=== PATIENT | female | born 1950 | race Caucasian/White ===

== ENCOUNTER → 2018-02-11 08:19 | Day surgery (SDC) | payer OTHER ==
[~2018-02-11 08:19] MED LIST: ALPRAZolam TAB* 0.25 MG PO PRN; Aspirin 81 mg CHEW TAB* 81 MG TAB.CHEW ONE; Aspirin EC TAB* 81 MG TAB.EC PO SCH; Diazepam TAB(*) 5 MG ONE; Diltiazem CD CAP* 180 MG PO SCH; HYDROcodone/ACETAMIN 5-325 MG* 1 TAB PO PRN; Heparin 2 UNITS/ML IVPREMIX* 2,000 ML IV ONE; Heparin(*) 1000 UNIT/ML 10 ML VIAL CATH LAB IV ONE; Iohexol 350 (CONTRAST) 200 ML MDV IV ONE; Levothyroxine TAB* 125 MCG TAB PO SCH; Lidocaine 1% INJ* 10 MG/ML 30 ML SDV ONE; Metoprolol Succinate XL TAB* 25 MG PO SCH; Midazolam* 1 MG/ML 10 ML VIAL (10 MG) ONE; NS 0.9% 1000 ML* 1,000 ML IV SCH; Omeprazole CAP* 20 MG PO SCH; ROSUVASTATIN CALCIUM 5 MG PO SCH; VERAPAMIL 2.5 MG/ML 2 ML VIAL ** 5 mg/2 ml ONE; diPHENhydraMINE PO* 25 MG ONE; fentaNYL* 50 MCG/ML 2 ML VIAL (100 MCG VIAL) ONE; nitroGLYCERIN DRIP* 25,000 MCG/250 ML BTL ONE
[2018-02-11 12:11] VITALS: BP 166/95
--- NOTE | 2018-02-12 00:04 | CATH ---
CC: Dr. Kiel Gordon; Estrella Petit NP * CARDIAC CATHETERIZATION REPORT: DATE OF PROCEDURE: 02/11/18 - [facility] CATH INDICATION FOR PROCEDURE: The patient with progressive weakness and shortness of breath with exertion, with an abnormal exercise stress echo, question decreasing LV function with exercise with aortic stenosis recently assessed by JORDAN and found to be no worse than moderate in nature, now rule out the presence of significant coronary artery disease. PROCEDURE: Coronary arteriography, left heart catheterization, left ventriculography. CONSENT: The patient was interviewed and examined in the holding area of the [facility]. The risks and benefits were explained and she understood them and wished to proceed. APPROACH: Right radial artery - assessed under ultrasound in the holding area and found to be acceptable for an approach. PRE-CARDIAC CATHETERIZATION LABORATORY RESULTS: Hemoglobin and hematocrit of 13.5 and 40 with a platelet count of 294,000. BUN and creatinine of 10 and 0.9 , sodium 139, potassium 4.1, chloride 106, bicarb 27. MEDICATIONS GIVEN DURING THE CARDIAC CATHETERIZATION: Versed 1 mg in the catheterization laboratory. The patient had received Benadryl 25 mg and Valium 5 mg in the holding area. EQUIPMENT UTILIZED: 1. Right radial artery sheath - 6-[place] Glidesheath. 2. Diagnostic guidewire - a 260 length Hansen curved guidewire. 3. Diagnostic coronary catheters - a 5-[place] 4 curved TIG catheter for the left coronary artery and a 5-[place] FR4 curved Colt catheter for the right coronary artery. 4. Left heart catheterization catheter, a 5-[place] PIG Performa radial artery catheter. 5. Closure device utilized - a radial band. DESCRIPTION OF PROCEDURE: The patient was brought to the cardiovascular laboratory where a formal time-out was performed. She was prepped and draped in sterile fashion and the right radial artery area was anesthetized with 1% lidocaine. Under ultrasound guidance, the right radial artery was cannulated and the sheath was placed. Coronary arteriography was performed utilizing the TIG catheter for the left coronary artery and the Colt catheter for the right coronary artery, which appeared to have an anterior takeoff. Central aortic pressure was recorded using the PIG Performa radial artery catheter advanced to the ascending aorta. The pigtail catheter was able to cross the aortic valve without any usage of a wire. Left ventricular pressure was recorded. Left ventriculography was performed utilizing a total of 20 cc of Omnipaque dye at a rate of 10 cc/sec. The catheter was then pulled back across the aortic valve to recheck gradient. At the end of the case, the catheter was removed and the sheath was removed and hemostasis was obtained with a Vasc Band. The reverse Barbeau was found to be a B. The total contrast used was 85 cc of Omnipaque dye. The radiation exposure included 8.3 minutes of fluoro time. The air kerma radiation was 1595 milligray. The DAP radiation was 9402 microgray per sq. m. RESULTS: HEMODYNAMIC DATA: Central aortic pressure 170/75 with a mean of 111. Left ventricular pressure 183 over left ventricular end-diastolic pressure of 26 to 30 mmHg. LEFT VENTRICULOGRAPHY: Performed in the GUY projection revealed symmetrical contracture of the left ventricle with the overall ejection fraction of 55% to 60%. CORONARY ARTERIOGRAPHY: A. Left coronary artery: 1. Left main - widely patent. 2. Left anterior descending artery - there was no significant disease seen throughout the course of the left anterior descending artery as it traverse to the apical region and on to the distal inferior wall. It supplied several diagonal branches, all of which distal vessels appeared to have corkscrew appearance suggesting the presence of left ventricular hypertrophy. No significant obstructions were seen. Of note, there appeared to be minimal plaquing in the proximal LAD of 10% to 15%. 3. Circumflex artery - a nondominant vessel supplying a thin first and second obtuse marginal branch with a slightly larger third and a moderate size fourth which extended into the inferior posterior apical region. No significant disease was seen throughout the course of the vessel. The circumflex artery after the low- lying obtuse marginal branch then proceeded to supply a left-sided posterior descending artery. No significant obstruction was seen throughout the course of the vessel. B. Right coronary artery - a probable nondominant, although there did seem to be some supply to the most proximal portion of the inferior wall. The artery tapered into small caliber in its distal vessels, but no focal obstruction was noted. Of note, the vessel was noted to have an anterior takeoff. OVERALL ASSESSMENT: Normal left ventricular systolic contractility with evidence of decreased left ventricular diastolic compliance evidenced by increased left ventricular end-diastolic pressure. No significant stenotic coronary artery disease was noted. This information will be shared with Dr. Kiel Gordon, the patient's primary social work program coordinator. Perhaps, consideration for the addition of diuretic therapy to beta-william therapy to help with relaxation would be most appropriate at this point. Of note, the degree of gradient across the aortic valve did not appear to be significant suggesting that the aortic valve at most would be mild to moderately obstructed. The ability of a pigtail catheter to pass across the aortic valve suggested that the valve was not severely obstructed. On examination, there was paradoxical splitting of S2 given her left bundle branch block, but I can distinctly hear a splitting with expiration. The patient has a scheduled followup wound check appointment with my partner, Dr. Oliveros, next week. She will follow up with Dr. Gordon after that. [id number]/CPS #: [id number] KARY
== END | disposition home or self-care (01) ==
LOC: CHICATH 08:19
PROVIDERS: ATTEND Internal Medicine Cardiovascular Disease
DX: I35.0 Nonrheumatic aortic (valve) stenosis (principal); I44.7 Left bundle-branch block, unspecified; I42.9 Cardiomyopathy, unspecified; E78.5 Hyperlipidemia, unspecified; E03.9 Hypothyroidism, unspecified; R94.39 Abnormal result of other cardiovascular function study; I11.9 Hypertensive heart disease without heart failure
CPT/HCPCS: 93458; A9270-GY; J1644; J2250; J3010

== ENCOUNTER 2018-07-02 13:37 | Emergency (ER) | payer MEDICARE, OTHER ==
[2018-07-02 13:50] VITALS: BP 158/78
--- NOTE | 2018-07-02 14:04 | UC ---
Abdominal Pain Female HPI - HPI Summary HPI Summary: 67 y/o female presents to the urgent care c/o upper abdominal pain since Saturday. Pt reports Hx of ventral Abdominal hernia and she feels when she press on it, pain is triggered. She states this morning she felt nausea and had a watery BM. Pain aching, 4/10 when she pushes on her ventral hernia, other than that she doesn't fell any pain. Nausea is gone, she now feels hungry. She ate a chicken noodle soup and a yogurt this morning. Pt is concerned the hernia is not strangulating. She also has Hx of GERD and take Omeprazole PO daily. Pt has not taken anything for pain and declines medications. Pt states Hx pf LBBB and aortic stenosis and denies chest pain or SOB. She states she has a full cardiology work up in 02/2018. Pt denies fever, dizziness, LUZ, N/V blood in the stool. She denies eating anything different or outside, recent travel. - History of Current Complaint Chief Complaint: UCAbdominalPain Stated Complaint: ABD PAIN Time Seen by Provider: 07/02/18 14:01 Hx Obtained From: Patient ?: No Onset/Duration: Gradual Onset, Lasting Days - 4 days, Still Present Timing: Constant Severity Initially: Mild Severity Currently: Moderate Pain Intensity: 5 - when she pushes on her abdominal hernia Pain Scale Used: 0-10 Numeric Location: Other - mid upper abdominal pain Radiates: No Character: Aching Aggravating Factor(s): Other: - push on abdominal hernia Alleviating Factor(s): Nothing Associated Signs and Symptoms: Positive: Nausea, Diarrhea - watery BM this morning - Risk Factors Ectopic Risk Factor: Negative Ovarian Torsion Risk Factor: Negative Allergies/Adverse Reactions: Allergies Allergy/AdvReac Type Severity Reaction Status Date / Time No Known Allergies Allergy Verified 07/02/18 13:50 PMH/Surg Hx/FS Hx/Imm Hx Previously Healthy: Yes Endocrine History: Hypothyroidism, Dyslipidemia Cardiovascular History: Hypertension, Other - LBBB, aortic stenosis GI/ History: Gastroesophageal Reflux Psychological History: Anxiety, Depression - Surgical History Surgical History: None - Family History Known Family History: Positive: Hypertension - Social History Occupation: Employed Full-time Lives: With Family Alcohol Use: Daily Substance Use Type: None Smoking Status (MU): Never Smoked Tobacco - Immunization History Most Recent Influenza Vaccination: fall 2013 Review of Systems All Other Systems Reviewed And Are Negative: Yes Constitutional: Positive: Negative Skin: Positive: Negative Eyes: Positive: Negative ENT: Positive: Negative Respiratory: Positive: Negative Cardiovascular: Positive: Negative Gastrointestinal: Positive: Abdominal Pain, Diarrhea - 1 watery BM this morning , Nausea Genitourinary: Positive: Negative Motor: Positive: Negative Neurovascular: Positive: Negative Musculoskeletal: Positive: Negative Neurological: Positive: Negative Psychological: Positive: Negative Is Patient Immunocompromised?: No Physical Exam - Summary Physical Exam Summary: Vital Signs Reviewed: Yes General:Patient is a well developed and nourished obese female who is sitting comfortable in the examining table. Patient is not in any acute respiratory distress. Eyes: Positive: Conjunctiva Clear - PERRLA, EOMI, fundi grossly normal ENT: Positive: Normal ENT inspection, Hearing grossly normal, Pharynx normal, TMs normal Neck: Positive: Supple, Nontender, No Lymphadenopathy Respiratory: Positive: Chest non-tender, Lungs clear, Normal breath sounds, No respiratory distress Cardiovascular: Positive: RRR,S1 and S2 present, No Murmur, Pulses Normal, Brisk Capillary Refill Abdomen Description: Positive: Nontender, Other: - Abd: obese with no distention. No surface trauma, no scars, incisions. hyperactive bowel sounds present in all four quadrants. Positive a ventral upper abdominal hernia, tender on deep palpation and when patient coughs, no guarding, or rigidity to palpation. No masses palpated, no pulsation in epigastric area. No organomegaly. Negative [place] signs. No periumbilical tenderness. No rebound in the lower quadrants. NT over McBurneys point. Good femoral pulses bilaterally. No hernia noted. No CVAT bilaterally Musculoskeletal: Positive: Strength Intact, ROM Intact, No Edema,FROM in all major joints, no edema, no cyanosis or clubbing. Neuro: Alert and oriented x 3. No acute neurological deficits. Speech is normal. Psychological: WNL Skin: Dry and warm Triage Information Reviewed: Yes Vital Signs: Initial Vital Signs Temp 98 F 07/02/18 13:47 Pulse 67 07/02/18 13:47 Resp 16 07/02/18 13:47 BP 158/78 07/02/18 13:47 Pulse Ox 100 07/02/18 13:47 Abd Pain Female Course/Dx - Course Course Of Treatment: 67 y/o female presents to the urgent care c/o upper abdominal pain since Saturday. Pt reports Hx of ventral Abdominal hernia and she feels when she press on it, pain is triggered. She states this morning she felt nausea and had a watery BM. Pain aching, 4/10 when she pushes on her ventral hernia, other than that she doesn't fell any pain. Nausea is gone, she now feels hungry. She ate a chicken noodle soup and a yogurt this morning. Pt is concerned the hernia is not strangulating. She also has Hx of GERD and take Omeprazole PO daily. Pt has not taken anything for pain and declines medications. Pt states Hx pf LBBB and aortic stenosis and denies chest pain or SOB. She states she has a full cardiology work up in 02/2018. Pt denies fever, dizziness, LUZ, N/V blood in the stool. She denies eating anything different or outside, recent travel. Hx obtained. Pt hyperactive bowel sounds present in all four quadrants. Positive a ventral upper abdominal hernia, tender on deep palpation and when patient coughs, no guarding, or rigidity to palpation on examination. Pt declined Zofran or tyleno PO for pain. UA ordered: negative. Abdominal/pelvic CT w/o ordered: Impression: No acute noncontrast pathology of visualized abdominal or pelvic pathology and no evidence of abdominal wall hernia observed as per radiologist. Pt advised to continue taking Omeprazole PO, increase hydration and eat small portion of soft food and rest. Pt also given a referral w/ General surgeon Dr Jordan for a consultation on her ventral hernia if pain continues. Strongly advised if abdominal pain increases and she develops fever and severe diarrhea or vomiting to go immediately to the ER for further management. Pt's BP is elevated today advised to decrease salt in diet , monitor BP and f/u with PCP for further management. D/C instruction explained. Pt left the clinic Hemodynamically stable, A&OX3. - Differential Dx/Diagnosis Differential Diagnosis: Appendicitis, Bowel Obstruction, Constipation, Gall Bladder Disease, Peptic Ulcer Disease, Renal Colic, Urinary Tract Infection, Other - gastroenteritis, abdominal hernia Provider Diagnosis: Upper abdominal pain, Ventral hernia, Uncontrolled hypertension Discharge - Sign-Out/Discharge Documenting (check all that apply): Patient Departure - D/c home All imaging exams completed and their final reports reviewed: Yes - Discharge Plan Condition: Stable Disposition: HOME Patient Education Materials: Acute Abdominal Pain (ED), Ventral Hernia (ED) Referrals: Estrella Petit NP [Primary Care Provider] - 2 Days Jacobo Jordan MD [Medical Doctor] - 1 Week Additional Instructions: 1- Please increase fluid intake w/ Gatorade or Pedialyte OTC. Eat small portion of soft food. 2- Take Tylenol PO q6hrs to alleviate symptoms. Continue taking Omeprazole PO and avoid spicy food, alcohol, chocolates or stayiong w/o eating for mansoor periods of time 3- CT was negative. However if your develop fever or abdominal pain w/ recurrent episodes of diarrhea please go to the ER, otherwise f/u with your PCP if diarrhea not resolving in 2-3 days 4- Please f/u w/ General surgeon Dr Jordan if ventral hernia continues w/ pain for further evaluation and treatment. 5-Your BP is elevated today. Please take your BP medications and decrease salt in your diet, monitor BP and if it continues to be elevated please f/u with your PCP for further management. If you develop chest pain, dizziness, visual disturbances, SOB, or severe LUZ please go immediately to the ER for further management - Billing Disposition and Condition Condition: STABLE Disposition: Home
--- NOTE | 2018-07-03 10:23 | UC ---
- Progress Note Progress Note: Patient Name: VIJAY KANG Medical Record#: [id number] Ordering Physician: Cristal DEL RIO Acct.#: [id number] : 1950 Age: 67 Sex: F Location: [facility] Exam Date: 07/02/18 1416 ADM Status: [facility] ER Order Information: CT ABD/PEL W/O Accession Number: [id number] CPT: 27512 CLINICAL HISTORY: upper abdominal pain, COMPARISON: None relevant available at the time of dictation. TECHNIQUE: Multiple contiguous axial CT scans were obtained of the abdomen and pelvis, without intravenous contrast enhancement. Coronal and sagittal multiplanar reformations are submitted for review. Oral contrast was not administered. FINDINGS: Evaluation is limited due to the lack of intravenous contrast. This limits evaluation of the solid organs and vasculature. LUNG BASES: The lung bases are clear. LIVER: The liver is normal in shape, size, contour, and attenuation. BILE DUCTS: There is no intrahepatic or extrahepatic biliary dilatation. GALLBLADDER: The gallbladder is normal, without pericholecystic inflammatory change. PANCREAS: The pancreas is normal, without mass or ductal dilatation. SPLEEN: Normal in size and appearance. UPPER GI TRACT: Evaluation of the gastrointestinal tract is limited by incomplete gastric distention. The upper GI tract is unremarkable. SMALL BOWEL AND MESENTERY: The small bowel is normal in contour, course, and caliber. There is no obstruction or dilatation. COLON: The colon is normal in contour, course, caliber. There is no pericolonic inflammatory change. ADRENALS: Normal bilaterally. KIDNEYS: The kidneys are normal in shape, size, contour, and axis. There is no hydronephrosis or nephrolithiasis. BLADDER: The bladder is smooth in contour. PELVIC ORGANS: The uterus and adnexa are grossly normal for technique. AORTA: The aorta is normal. IVC: Unremarkable LYMPH NODES: There is no lymphadenopathy by size criteria. ABDOMINAL WALL: There is no evidence for abdominal wall hernia. BONES AND SOFT TISSUES: Degenerative changes are noted of the spine. OTHER: None IMPRESSION: NO ACUTE NONCONTRAST CT PATHOLOGY OF THE VISUALIZED ABDOMEN AND PELVIS. This report is only to be considered final once signed by the Provider(s) as displayed in the "<Electronically Signed by >" field (s). Absence of a signature indicates the report is in a draft status and still needs to be finalized. In the event this document was created by someone other than the signing Provider, the individual initiating the document will be listed in the "Entered by:" or "Dictated by:" [email or web address]. 1 of 2 Course/Dx - Diagnoses Provider Diagnoses: Upper abdominal pain, Ventral hernia, Uncontrolled hypertension Discharge - Sign-Out/Discharge Documenting (check all that apply): Post-Discharge Follow Up All imaging exams completed and their final reports reviewed: Yes - Discharge Plan Condition: Stable Disposition: HOME Patient Education Materials: Acute Abdominal Pain (ED), Ventral Hernia (ED) Referrals: Jacobo Jordan MD [Medical Doctor] - 1 Week Estrella Petit NP [Primary Care Provider] - 2 Days Additional Instructions: 1- Please increase fluid intake w/ Gatorade or Pedialyte OTC. Eat small portion of soft food. 2- Take Tylenol PO q6hrs to alleviate symptoms. Continue taking Omeprazole PO and avoid spicy food, alcohol, chocolates or stayiong w/o eating for mansoor periods of time 3- CT was negative. However if your develop fever or abdominal pain w/ recurrent episodes of diarrhea please go to the ER, otherwise f/u with your PCP if diarrhea not resolving in 2-3 days 4- Please f/u w/ General surgeon Dr Jordan if ventral hernia continues w/ pain for further evaluation and treatment. 5-Your BP is elevated today. Please take your BP medications and decrease salt in your diet, monitor BP and if it continues to be elevated please f/u with your PCP for further management. If you develop chest pain, dizziness, visual disturbances, SOB, or severe LUZ please go immediately to the ER for further management - Billing Disposition and Condition Condition: STABLE Disposition: Home
== END 2018-07-02 15:30 | disposition home or self-care (01) ==
LOC: UCEAST 13:37
DX: R10.10 Upper abdominal pain, unspecified (principal); K43.9 Ventral hernia without obstruction or gangrene; R03.0 Elevated blood-pressure reading, without diagnosis of hypertension; K21.9 Gastro-esophageal reflux disease without esophagitis; I44.7 Left bundle-branch block, unspecified; I35.0 Nonrheumatic aortic (valve) stenosis; E03.9 Hypothyroidism, unspecified; E78.5 Hyperlipidemia, unspecified; I10 Essential (primary) hypertension; F41.9 Anxiety disorder, unspecified; F32.9 Major depressive disorder, single episode, unspecified
CPT/HCPCS: 74176; 81003; 99211; G0463

== ENCOUNTER 2018-09-26 18:31 | Emergency (ER) | payer OTHER ==
--- OUTSIDE RECORDS SUMMARY | 2018-09-26 18:35 | XMS REPORT | Continuity of Care Document ---
:1950 External Reference #:[id number] Author Name Boyd Trinh Care Team Providers Name Role Phone Estrella Petit NP Primary Care Physician Unavailable Payers Date Identification Numbers Payment Provider Subscriber Policy Number: [id number] [employer] Juliana Kang Group Number: [id number] [address] PayID: [id number] [place] [address] Problems Active Problems Provider Date Hypothyroidism Estrella Petit, N.P. Onset: 04/15/2012 Degenerative joint disease involving Estrella Petit, N.P. Onset: 04/15/2012 multiple joints Aortic valve disorder David Mahajan M.D., [facility], [facility] Onset: 03/06/2013 Left bundle branch block David Mahajan M.D., [facility] Onset: 03/06/2013 Benign essential hypertension David Mahajan M.D., [facility] Onset: 2013 Hyperlipidemia David Mahajan M.D., [facility] Onset: 09/11/2013 Family History Date Family Member(s) Observation Comments : (age Father due to Lung COPD 81 Years) Cancer Onset: (age 79 Father Coronary Artery Disease COPD, Lung Cancer Years) (CAD) Mother Hypertension Hyperlipidemia, and Thyroid Disease Children 2 1 Daughter - Thyroid Disease, Congenital Valve Disease age 46 1 Son - Smoker age 44 Siblings 4 1 Brother - Cardiac arrhythmia - Has a defibrillator age 46 1 Sister - Breast Cancer (30's), OA, GERD, Atrial Fibrillation, age 61 1 Sister - Thyroid Disease, Anxiety age 68 1 Sister - OA, Thyroid Disease, Atrial Fibrillation age 70 Social History Type Date Description Comments Sex Unknown Marital Status Lives With Family Occupation [employer] at [employer] retired Cu ETOH Use consumes 3-4 glasses of wine per day Tobacco Use Start: Unknown Patient has never smoked Recreational Drug Use Denies Drug Use Smoking Status Reviewed: 09/16/18 Patient has never smoked Exercise Type/Frequency Exercises regularly Allergies, Adverse Reactions, Alerts Description No Known Drug Allergies Medications Active Medications SIG Qnty Indications Ordering Provider Date Aldactone 1 by mouth every 90tabs Kiel Bajwa 08/19/2018 25mg Tablets day Anup Gordon Crestor 1 by mouth every 90tabs Estrella Petit, 04/07/2018 10mg Tablets day N.P. Alprazolam Take 1 Tablet By 15tabs Estrella Petit, 01/27/2018 0.25mg Tablets Mouth Up To N.P. Three Times A Day as Needed For Anxiety (Max Of 3 Per Day ) Cartia XT 1 tablet by 90caps Kiel Bajwa 01/22/2018 180mg Caps ER mouth once a day Anup Gordon 24HR Hydrocodone-Acetaminop one tablet by 30tabs Oleg Cruz NP 05/03/2017 hen mouth every 12 5-325mg Tablets hours as needed for pain Levothyroxine Sodium Take One Tablet 30tabs Estrella Petit, 04/01/2017 By Mouth Once N.P. 125mcg Tablets Daily Metoprolol Succinate 1 by mouth every 90tabs Leny Oliveros, 05/22/2012 ER day , GILLIAN, [facility] 25mg Tablets ER 24HR Omeprazole Take One Capsule 30caps Oleg Cruz NP 20mg Capsules By Mouth Once DR Daily History Medications Triamcinolone apply twice a day 30gm Estrella Petit, 05/26/2018 - Acetonide until clear N.P. 05/27/2018 0.1% Cream Proair HFA 2 puffs by mouth 8.5units Estrella Petit, 04/07/2018 - every 4 hours as N.P. 05/07/2018 108(90Base) mcg/Act needed Aerosol Amoxicillin/Clavulan one tablet by 20tabs J20.9 Estrella Petit, 04/07/2018 - ate Potassium mouth twice daily N.P. 04/17/2018 for 10 days 875-125mg Tablets Ventolin HFA 1 to 2 inhalations 18units J20.9 Estrella Limanjula, 04/07/2018 - every 4 hours as N.P. 04/07/2018 108(90Base) mcg/Act needed Aerosol Prednisone 3 tabs daily for 5 18tabs J20.9 Estrella Damaso, 04/07/2018 - 20mg days, then 2 N.P. 04/14/2018 Tablets tablets for a day, then 1 tablet for a day, then stop Vitamin B12 TR 1/2 tab by mouth 30tabs Other Ordering 02/19/2018 - every day Provider 08/18/2018 1000mcg Tablets ER Furosemide 1a pill by mouth 30tabs David Mahajan, 02/11/2018 - 20mg every day as Anup [facility], 09/15/2018 Tablets needed [facility] Medrol 6 by mouth day 1, 21units M25.512 Estrella Petit, 08/21/2017 - 4mg TBPK 5 by mouth day 2, N.P. 08/27/2017 4 by mouth day 3, 3 by mouth day 4, 2 by mouth day 5, 1 by mouth day 6 Tramadol HCL 1-2 tablets every 30tabs M54.5 Oleg Cruz NP 04/04/2017 - 50mg 12 hours as needed 05/03/2017 Tablets for pain. Aspirin Take One Tablet By 30tabs I10 Estrella Petit, 10/01/2016 - 81mg Tablets Mouth Once Daily N.P. 03/02/2018 DR Blood 1 tab by mouth 60caps M71.22 Ant F 06/28/2016 - 100mg twice a day as MD Angie 10/01/2016 Capsules needed Azithromycin 2 tabs by mouth 6tabs J20.9 Oleg Cruz NP 04/13/2016 - 250mg every day x1 day, 04/18/2016 Tablets 1 tab by mouth every day x 4 days Guaifenesin-Codeine 1-2 teaspoon every 180ml J20.9 Oleg Cruz NP 2016 - 4-6 hours for 04/20/2016 100-10mg/5ML Syrup cough Symbicort 2 puffs twice 6.900gm J20.9 Oleg Cruz NP 04/13/2016 - daily 04/27/2016 80-4.5mcg/Act Aerosol Ventolin HFA 1 to 2 inhalations 1inhaler R06.2 Estrella Petit, 07/27/2015 - every 4 hours as N.P. 08/21/2017 108(90Base) mcg/Act needed Aerosol Guaifenesin-Codeine 1-2 teaspoon every 180ml J06.9 Oleg Cruz NP 2015 - 4-6 hours for 06/19/2015 100-10mg/5ML Syrup cough Fluticasone 2 sprays each 16gm J06.9 Oleg Cruz NP 06/09/2015 - Propionate nostril qd. 06/19/2015 50mcg/Act Suspension Lisinopril 1/2 by mouth 90tabs David Mahajan, 03/10/2014 - 20mg every day M.D., [facility], 01/22/2018 Tablets [facility] Levothyroxine Sodium Take One Tablet By 30tabs Estrella Petit, 04/28/2013 - Mouth Once Daily N.P. 04/01/2017 150mcg Tablets Azithromycin two tabs day one, 6tabs 466.0 Estrella Petit, 11/21/2012 - 250mg one daily till N.P. 12/01/2012 Tablets gone Xanax Take One Tablet By 15tabs Estrella Petit, 10/20/2012 - 0.25mg Tablets Mouth Up To Three N.P. 01/27/2018 Times A Day as Needed For Anxiety Max Of 3 Tablets Per Day Lisinopril 1 1/2 tabs by 135tabs David Mahajan, 05/22/2012 - 10mg mouth every day M.D., [facility], 03/10/2014 Tablets [facility] Lisinopril 1 po qd 90tabs David Mahajan, 05/15/2012 - 5mg M.D., [facility], 05/22/2012 Tablets [facility] Crestor 1 tab by mouth 90tabs Kiel Bajwa 05/15/2012 - 5mg Tablets every night Anup Gordon 04/07/2018 Levothroid 1 po qd Unknown - 125mcg 04/28/2013 Tablets Hydrocodone/Acetamin 1-2 po qid prn 40tabs Unknown - ophen 02/10/2013 5-325mg Tablets Nabumetone 1 po bid 60tabs Unknown - 500mg 02/10/2013 Tablets Aspir-81 1 by mouth every 120tabs Oleg Cruz NP - 81mg Tablets day 10/24/2016 Medications Administered in Office Medication SIG Qnty Indications Ordering Provider Date Depomedrol 40MG Ant Adams MD 06/28/2016 Injection Inj, Regadenoson, 0.1 MG David Mahajan M.D., [facility], 05/20/2012 Injection [facility] Aminophylline David Mahajan M.D., [facility], 05/20/2012 Injection [facility] Technetium TC 99M David Mahajan M.D., [facility], 05/20/2012 Tetrofosmin, Per Unit Dose Up [facility] To 40 Millicuries Injection Immunizations CPT Code Status Date Vaccine Reaction Lot # [id number] Given 12/15/2017 Influenza Virus Vaccine, Quadrivalent, Split, Preservative Free 36920 Given 04/04/2017 Pneumococcal Conjugate No immediate reaction [id number] Vaccine 13 Valent For noted. Intramuscular Use 13425 Given 03/19/2016 Tdap - no immediate reaction [id number] Tetanus/Diptheria/Acellular noted ... hh Pertussis 26042 Given 01/25/2015 Influenza Virus Vaccine, [id number] Quadrivalent, Split, Preservative Free Vital Signs Date Vital Result Comment 09/16/2018 3:15pm Height 61.5 inches 5'1.50" Weight 203.00 lb with sandals Heart Rate 60 /min BP Systolic 150 mmHg Rue lg cuf f BP Diastolic 90 mmHg Rue lg cuf f BP Systolic Sitting 130 mmHg Lue lg cuff BP Diastolic Sitting 90 mmHg Lue lg cuff BP Systolic Standing 152 mmHg Lue lg cuff BP Diastolic Standing 90 mmHg Lue lg cuff Respiratory Rate 14 /min BMI (Body Mass Index) 37.7 kg/m2 Ejection Fraction 45-50% date 01/15/18 ECHO 08/19/2018 2:35pm Height 61.5 inches 5'1.50" Weight 201.25 lb with shoes Heart Rate 64 /min BP Systolic Sitting 156 mmHg BP Diastolic Sitting 84 mmHg BP Systolic Standing 144 mmHg BP Diastolic Standing 80 mmHg BMI (Body Mass Index) 37.4 kg/m2 Ejection Fraction 45-50% 01/15/2018 Echocardiogram 05/28/2018 2:11pm Height 61.5 inches 5'1.50" Weight 205.25 lb Heart Rate 59 /min BP Systolic 142 mmHg BP Diastolic 73 mmHg Body Temperature 97.6 F O2 % BldC Oximetry 98 % BMI (Body Mass Index) 38.1 kg/m2 04/07/2018 12:50pm Height 61.5 inches 5'1.50" Weight 205.25 lb Heart Rate 67 /min BP Systolic 143 mmHg BP Diastolic 77 mmHg Body Temperature 98.8 F O2 % BldC Oximetry 95 % BMI (Body Mass Index) 38.1 kg/m2 03/18/2018 3:33pm Height 62 inches 5'2" Weight 207.75 lb Heart Rate 63 /min BP Systolic 153 mmHg BP Diastolic 78 mmHg Body Temperature 97.7 F O2 % BldC Oximetry 98 % BMI (Body Mass Index) 38.0 kg/m2 03/03/2018 3:07pm Height 62 inches 5'2" Weight 205.00 lb Heart Rate 58 /min BP Systolic 140 mmHg Lue lg cuff BP Diastolic 85 mmHg Lue lg cuff Respiratory Rate 18 /min BMI (Body Mass Index) 37.5 kg/m2 02/20/2018 2:47pm Height 62 inches 5'2" Weight 205.12 lb Heart Rate 76 /min BP Systolic Sitting 136 mmHg BP Diastolic Sitting 84 mmHg BMI (Body Mass Index) 37.5 kg/m2 01/09/2018 2:32pm Height 62 inches 5'2" Weight 200.00 lb with shoes Heart Rate 74 /min BP Systolic Sitting 130 mmHg lue reg cuff BP Diastolic Sitting 74 mmHg lue reg cuff BP Systolic Standing 128 mmHg lue reg cuff BP Diastolic Standing 70 mmHg lue reg cuff BMI (Body Mass Index) 36.6 kg/m2 Ejection Fraction 55-60% echo.08/26/2012 10/02/2017 3:32pm Height 62 inches 5'2" Weight 200.00 lb Heart Rate 60 /min BP Systolic 115 mmHg BP Diastolic 63 mmHg Body Temperature 98.5 F O2 % BldC Oximetry 98 % BMI (Body Mass Index) 36.6 kg/m2 08/21/2017 2:40pm Height 62 inches 5'2" Weight 203.00 lb Heart Rate 63 /min BP Systolic 109 mmHg BP Diastolic 59 mmHg Body Temperature 98.4 F O2 % BldC Oximetry 97 % BMI (Body Mass Index) 37.1 kg/m2 04/04/2017 1:00pm Height 62 inches 5'2" Weight 205.50 lb Heart Rate 64 /min BP Systolic 134 mmHg BP Diastolic 80 mmHg Body Temperature 97.6 F O2 % BldC Oximetry 97 % BMI (Body Mass Index) 37.6 kg/m2 Waist Circumference 43.5 10/25/2016 2:48pm Height 62 inches 5'2" Weight 204.00 lb w/shoes Heart Rate 84 /min 62 BP Systolic Sitting 142 mmHg LA lg cuff BP Diastolic Sitting 82 mmHg LA lg cuff BP Systolic Standing 122 mmHg LA lg cuff BP Diastolic Standing 60 mmHg LA lg cuff BMI (Body Mass Index) 37.3 kg/m2 Ejection Fraction 55-60% Echo 09/26/12 10/01/2016 3:48pm Weight 202.00 lb Heart Rate 71 /min BP Systolic 128 mmHg BP Diastolic 80 mmHg Body Temperature 98.3 F O2 % BldC Oximetry 98 % 06/28/2016 1:50pm Height 62 inches 5'2" Weight 200.00 lb Heart Rate 51 /min BP Systolic 155 mmHg BP Diastolic 72 mmHg Respiratory Rate 16 /min Body Temperature 98.2 F Pain Level 1 BMI (Body Mass Index) 36.6 kg/m2 06/25/2016 2:59pm Weight 203.00 lb Heart Rate 71 /min BP Systolic Sitting 132 mmHg BP Diastolic Sitting 72 mmHg Body Temperature 98.5 F O2 % BldC Oximetry 97 % 04/13/2016 2:51pm Weight 201.00 lb Heart Rate 81 /min BP Systolic Sitting 154 mmHg BP Diastolic Sitting 86 mmHg Respiratory Rate 20 /min Body Temperature 99.7 F O2 % BldC Oximetry 98 % 03/19/2016 1:35pm Height 61.25 inches 5'1.25" Weight 202.00 lb Heart Rate 64 /min BP Systolic 138 mmHg BP Diastolic 78 mmHg Body Temperature 98.8 F O2 % BldC Oximetry 98 % BMI (Body Mass Index) 37.9 kg/m2 10/10/2015 2:12pm Height 61.5 inches 5'1.50" Weight 195.00 lb Heart Rate 76 /min 80 BP Systolic Sitting 122 mmHg right arm, reg cuff BP Diastolic Sitting 74 mmHg right arm, reg cuff BP Systolic Standing 122 mmHg right arm, reg cuff BP Diastolic Standing 72 mmHg right arm, reg cuff Respiratory Rate 20 /min BMI (Body Mass Index) 36.2 kg/m2 Ejection Fraction 55-60% 08/26/12 07/27/2015 4:15pm Weight 199.50 lb Heart Rate 72 /min BP Systolic Sitting 117 mmHg BP Diastolic Sitting 59 mmHg O2 % BldC Oximetry 98 % 06/09/2015 1:35pm Height 61.5 inches 5'1.50" Weight 200.00 lb Heart Rate 76 /min BP Systolic Sitting 124 mmHg BP Diastolic Sitting 80 mmHg Respiratory Rate 15 /min Body Temperature 97.4 F O2 % BldC Oximetry 98 % BMI (Body Mass Index) 37.2 kg/m2 01/25/2015 1:38pm Height 61.5 inches 5'1.50" Weight 197.00 lb Heart Rate 69 /min BP Systolic Sitting 128 mmHg BP Diastolic Sitting 64 mmHg O2 % BldC Oximetry 96 % BMI (Body Mass Index) 36.6 kg/m2 11/16/2014 2:24pm Height 62 inches 5'2" Weight 196.00 lb without shoes Heart Rate 70 /min BP Systolic Sitting 120 mmHg LA LG Cuff BP Diastolic Sitting 80 mmHg LA LG Cuff BP Systolic Standing 120 mmHg LA LG Cuff BP Diastolic Standing 84 mmHg LA LG Cuff Respiratory Rate 17 /min BMI (Body Mass Index) 35.8 kg/m2 Ejection Fraction 55-60% date 08/26/12 ECHO 07/30/2014 9:57am Weight 198.00 lb Heart Rate 66 /min BP Systolic Sitting 118 mmHg BP Diastolic Sitting 70 mmHg O2 % BldC Oximetry 98 % 07/15/2014 1:34pm Weight 195.75 lb Heart Rate 68 /min BP Systolic Sitting 130 mmHg BP Diastolic Sitting 56 mmHg O2 % BldC Oximetry 98 % 04/27/2014 1:32pm Weight 203.00 lb Heart Rate 60 /min BP Systolic Sitting 138 mmHg BP Diastolic Sitting 66 mmHg Body Temperature 98.7 F 03/31/2014 3:18pm Height 61 inches 5'1" Heart Rate 64 /min regular BP Systolic 126 mmHg right arm reg cuff BP Diastolic 62 mmHg right arm reg cuff BP Systolic Sitting 122 mmHg right arm reg cuff BP Diastolic Sitting 70 mmHg right arm reg cuff Respiratory Rate 18 /min 03/10/2014 3:10pm Height 61 inches 5'1" Weight 200.00 lb Heart Rate 60 /min 62 BP Systolic Sitting 158 mmHg right arm, reg cuff BP Diastolic Sitting 76 mmHg right arm, reg cuff BP Systolic Standing 138 mmHg right arm, reg cuff BP Diastolic Standing 76 mmHg right arm, reg cuff Respiratory Rate 20 /min BMI (Body Mass Index) 37.8 kg/m2 01/15/2014 1:15pm Height 61 inches 5'1" Weight 199.00 lb Heart Rate 72 /min BP Systolic Sitting 132 mmHg BP Diastolic Sitting 90 mmHg BMI (Body Mass Index) 37.6 kg/m2 09/11/2013 3:32pm Height 61 inches 5'1" Weight 196.00 lb Heart Rate 64 /min 66 BP Systolic Sitting 124 mmHg right arm, large cuff BP Diastolic Sitting 76 mmHg right arm, large cuff BP Systolic Standing 116 mmHg right arm, large cuff BP Diastolic Standing 76 mmHg right arm, large cuff Respiratory Rate 16 /min BMI (Body Mass Index) 37.0 kg/m2 07/15/2013 1:32pm Height 62 inches 5'2" Weight 195.00 lb Heart Rate 72 /min BP Systolic Sitting 148 mmHg BP Diastolic Sitting 78 mmHg Body Temperature 97.9 F BMI (Body Mass Index) 35.7 kg/m2 06/18/2013 10:41am Weight 198.00 lb Heart Rate 68 /min BP Systolic Sitting 110 mmHg BP Diastolic Sitting 74 mmHg Body Temperature 98.0 F 04/23/2013 11:42am Weight 200.25 lb Heart Rate 60 /min BP Systolic 104 mmHg BP Diastolic 70 mmHg Respiratory Rate 16 /min Body Temperature 98.2 F 03/06/2013 3:55pm Height 61.75 inches 5'1.75" Weight 200.00 lb Heart Rate 6062 /min BP Systolic Sitting 126 mmHg left arm, large cuff BP Diastolic Sitting 86 mmHg left arm, large cuff BP Systolic Standing 114 mmHg left arm, large cuff BP Diastolic Standing 80 mmHg left arm, large cuff Respiratory Rate 20 /min BMI (Body Mass Index) 36.9 kg/m2 02/10/2013 2:10pm Weight 198.00 lb Heart Rate 60 /min BP Systolic 120 mmHg BP Diastolic 72 mmHg Body Temperature 97.3 F 11/21/2012 3:41pm Weight 196.00 lb Heart Rate 68 /min BP Systolic Sitting 126 mmHg BP Diastolic Sitting 78 mmHg 05/16/2012 1:37pm Height 61.75 inches 5'1.75" Weight 199.75 lb Heart Rate 72 /min BP Systolic Sitting 102 mmHg BP Diastolic Sitting 60 mmHg BMI (Body Mass Index) 36.8 kg/m2 04/15/2012 3:28pm Height 61.75 inches 5'1.75" Weight 199.00 lb Heart Rate 58 /min BP Systolic Sitting 148 mmHg 142/ 80 BP Diastolic Sitting 80 mmHg 142/ 80 BMI (Body Mass Index) 36.7 kg/m2 Results Test Date Facility Test Result H/L Range Note Liver Function 09/08/2018 [facility] Total Protein 7.1 g/dL N 6.4-8.[address] [place] [address] [phone] Albumin 4.3 g/dL N 3.2-5.2 Globulin 2.8 g/dL N 2-4 Albumin/Globulin Ratio 1.5 N 1-3 Total Bilirubin 0.90 mg/dL N 0.2-1.0 Direct Bilirubin 0.10 mg/dL N 0.03-0.18 Indirect Bilirubin 0.8 mg/dL N 0.3-1.0 Alkaline Phosphatase 93 U/L N 34-104 Alt 19 U/L N 7-52 Ast 18 U/L N 13-39 Lipid Profile 09/08/2018 [facility] Triglycerides 110 mg/dL 1 (Trig/Chol/HDL) [address] [place] [address] [phone] Cholesterol 187 mg/dL 2 HDL Cholesterol 81.0 mg/dL 3 LDL Cholesterol 84 mg/dL 4 Lipid Panel - 09/08/2018 [facility] Creatine 56 U/L N 10-[address] Kinase(CK) [place] [address] [phone] Comp Metabolic 09/08/2018 [facility] Sodium 140 N 135-[address] mmol/[place] [address] [phone] Potassium 4.4 mmol/L N 3.5-5.0 Chloride 107 mmol/L N 101-111 Co2 Carbon Dioxide 26 mmol/L N 22-32 Anion Gap 7 mmol/L N 2-11 Glucose 113 mg/dL High 70-100 Blood Urea Nitrogen 17 mg/dL N 6-24 Creatinine 0.99 mg/dL High 0.51-0.95 BUN/Creatinine Ratio 17.2 N 8-20 Calcium 9.4 mg/dL N 8.6-10.3 Total Protein 7.4 g/dL N 6.4-8.9 Albumin 4.4 g/dL N 3.2-5.2 Globulin 3.0 g/dL N 2-4 Albumin/Globulin Ratio 1.5 N 1-3 Total Bilirubin 1.00 mg/dL N 0.2-1.0 Alkaline Phosphatase 88 U/L N 34-104 Alt 19 U/L N 7-52 Ast 17 U/L N 13-39 Egfr Non- 55.9 >60 Egfr 67.7 >60 5 Laboratory test 09/08/2018 [facility] Magnesium 2.1 mg/dL N 1.9-2.[address] [place] [address] [phone] Poc Urinalysis 07/02/2018 [facility] Poc Glucose, Negative Negative [address] [place] [address] [phone] Poc Bilirubin, Urine Negative Negative Poc Ketone, Urine Negative Negative Poc Specific [place]auf[place], Urine 1.015 N 1.010-1.030 Poc Blood, Urine Negative Negative Poc pH, Urine 7.0 N 5-9 Poc Protein, Urine Negative Negative Poc Urobilinogen, Urine 0.2 Negative Poc Nitrite, Urine Negative Negative Poc Leukocytes, Urine Negative Negative Poc Color, Urine Yellow Poc Clarity, Urine Clear 6 Lipid Profile 04/03/2018 [facility] Triglycerides 106 mg/dL 7 (Trig/Chol/HDL) [address] [place] [address] [phone] Cholesterol 219 mg/dL 8 HDL Cholesterol 86.4 mg/dL 9 LDL Cholesterol 111 mg/dL 10 Comp Metabolic Panel 04/03/2018 [facility] Sodium 137 mmol/L N 135-[address] [place] [address] [phone] Potassium 4.2 mmol/L N 3.5-5.0 Chloride 105 mmol/L N 101-111 Co2 Carbon Dioxide 27 mmol/L N 22-32 Anion Gap 5 mmol/L N 2-11 Glucose 109 mg/dL High 70-100 Blood Urea Nitrogen 15 mg/dL N 6-24 Creatinine 0.90 mg/dL N 0.51-0.95 BUN/Creatinine Ratio 16.7 N 8-20 Calcium 9.1 mg/dL N 8.6-10.3 Total Protein 7.0 g/dL N 6.4-8.9 Albumin 4.4 g/dL N 3.2-5.2 Globulin 2.6 g/dL N 2-4 Albumin/Globulin Ratio 1.7 N 1-3 Total Bilirubin 0.90 mg/dL N 0.2-1.0 Alkaline Phosphatase 77 U/L N 34-104 Alt 15 U/L N 7-52 Ast 16 U/L N 13-39 Egfr Non- 62.6 >60 Egfr 75.8 >60 11 CBC Auto Diff 03/18/2018 [facility] White Blood 5.9 10^3/uL N 3.5-10.[address] [place] [address] [phone] Red Blood Count 4.38 10^6/uL N 4.00-5.40 Hemoglobin 13.7 g/dL N 12.0-16.0 Hematocrit 41 % N 35-47 Mean Corpuscular Volume 92 fL N 80-97 Mean Corpuscular Hemoglobin 31 pg N 27-31 Mean Corpuscular HGB Conc 34 g/dL N 31-36 Red Cell Distribution Width 13 % N 10.5-15 Platelet Count 317 10^3/uL N 150-450 Mean Platelet Volume 7.9 fL N 7.4-10.4 Abs Neutrophils 3.6 10^3/uL N 1.5-7.7 Abs Lymphocytes 1.6 10^3/uL N 1.0-4.8 Abs Monocytes 0.4 10^3/uL N 0-0.8 Abs Eosinophils 0.2 10^3/uL N 0-0.6 Abs Basophils 0.1 10^3/uL N 0-0.2 Abs Nucleated RBC 0 10^3/uL Granulocyte % 61.9 % Lymphocyte % 28.1 % Monocyte % 6.2 % Eosinophil % 2.8 % Basophil % 1.0 % Nucleated Red Blood Cells % 0.1 Comp Metabolic Panel 03/18/2018 [facility] Sodium 138 mmol/L N 135-[address] [place] [address] [phone] Potassium 4.1 mmol/L N 3.5-5.0 Chloride 102 mmol/L N 101-111 Co2 Carbon Dioxide 30 mmol/L N 22-32 Anion Gap 6 mmol/L N 2-11 Glucose 91 mg/dL N 70-100 Blood Urea Nitrogen 12 mg/dL N 6-24 Creatinine 0.89 mg/dL N 0.51-0.95 BUN/Creatinine Ratio 13.5 N 8-20 Calcium 9.3 mg/dL N 8.6-10.3 Total Protein 7.4 g/dL N 6.4-8.9 Albumin 4.5 g/dL N 3.2-5.2 Globulin 2.9 g/dL N 2-4 Albumin/Globulin Ratio 1.6 N 1-3 Total Bilirubin 0.60 mg/dL N 0.2-1.0 Alkaline Phosphatase 83 U/L N 34-104 Alt 17 U/L N 7-52 Ast 18 U/L N 13-39 Egfr Non- 63.5 >60 Egfr 76.8 >60 12 Laboratory test finding 03/18/2018 [facility] Lipase 24 U/L N 11.0-82.[address] [place] [address] [phone] Amylase 30 U/L N 29-103 Ua Routine 03/18/2018 [employer] House Ua Specific [place]aufman 1.025 Ua PH 6 Ua Color yellow Ua Appera clear Ua WBC trace Ua Protein negative Ua Glucose normal Ua Ketones negative Ua Bilirubin normal Ua Urobilinogen normal Ua Nitrite negative Ua Occult Blood 250 Cath Panel 02/07/2018 [facility] Partial 25.1 seconds Low 26.0 -36.[address] [place] [address] PTT [phone] CBC Auto 02/07/2018 [facility] White Blood 5.3 10^3/uL N 3.5- 10.[address] Count [place], [place] [id number] [phone] Red Blood Count 4.33 10^6/uL N 4.00-5.40 Hemoglobin 13.5 g/dL N 12.0-16.0 Hematocrit 40 % N 35-47 Mean Corpuscular Volume 92 fL N 80-97 Mean Corpuscular Hemoglobin 31 pg N 27-31 Mean Corpuscular HGB Conc 34 g/dL N 31-36 Red Cell Distribution Width 13 % N 10.5-15 Platelet Count 294 10^3/uL N 150-450 Mean Platelet Volume 7.7 fL N 7.4-10.4 Abs Neutrophils 3.1 10^3/uL N 1.5-7.7 Abs Lymphocytes 1.6 10^3/uL N 1.0-4.8 Abs Monocytes 0.5 10^3/uL N 0-0.8 Abs Eosinophils 0.1 10^3/uL N 0-0.6 Abs Basophils 0 10^3/uL N 0-0.2 Abs Nucleated RBC 0 10^3/uL Granulocyte % 57.5 % Lymphocyte % 30.1 % Monocyte % 9.3 % Eosinophil % 2.2 % Basophil % 0.9 % Nucleated Red Blood Cells % 0 Inr/Protime 02/07/2018 [facility] Inr 0.89 N 0.77-1.02 [address] [place] [address] [phone] Basic Metabolic 02/07/2018 [facility] Sodium 139 mmol/L N 135- 145 Panel [address] [place] [address] [phone] Potassium 4.1 mmol/L N 3.5-5.0 Chloride 106 mmol/L N 101-111 Co2 Carbon Dioxide 27 mmol/L N 22-32 Anion Gap 6 mmol/L N 2-11 Glucose 97 mg/dL N 70-100 Blood Urea Nitrogen 10 mg/dL N 6-24 Creatinine 0.90 mg/dL N 0.51-0.95 BUN/Creatinine Ratio 11.1 N 8-20 Calcium 9.2 mg/dL N 8.6-10.3 Egfr Non- 62.6 >60 Egfr 75.8 >60 13 Laboratory 09/16/2017 [facility] TSH (Thyroid Stim 0.69 N 0.34 -5.[address] Horm) mcIU/[place] [address] [phone] Lipid Profile 03/28/2017 [facility] Triglycerides 58 mg/dL 15 (Trig/Chol/HDL [address] ) [place] [address] [phone] Cholesterol 179 mg/dL 16 HDL Cholesterol 63.8 mg/dL 17 LDL Cholesterol 104 mg/dL 18 Comp Metabolic Panel 03/28/2017 [facility] Sodium 139 mmol/L N 133-145 [address] [place] [address] [phone] Potassium 4.3 mmol/L N 3.5-5.0 Chloride 106 mmol/L N 101-111 Co2 Carbon Dioxide 27 mmol/L N 22-32 Anion Gap 6 mmol/L N 2-11 Glucose 100 mg/dL N 70-100 Blood Urea Nitrogen 15 mg/dL N 6-24 Creatinine 0.79 mg/dL N 0.51-0.95 BUN/Creatinine Ratio 19.0 N 8-20 Calcium 9.0 mg/dL N 8.6-10.3 Total Protein 6.7 g/dL N 6.4-8.9 Albumin 3.9 g/dL N 3.2-5.2 Globulin 2.8 g/dL N 2-4 Albumin/Globulin Ratio 1.4 N 1-3 Total Bilirubin 0.80 mg/dL N 0.2-1.0 Alkaline Phosphatase 73 U/L N 34-104 Alt 16 U/L N 7-52 Ast 17 U/L N 13-39 Egfr Non- 73.0 >60 Egfr 93.9 >60 19 Laboratory test 03/28/2017 [facility] TSH (Thyroid 0.06 Low 0.34-5.60 20 finding [address] [facility] Stim Horm) mcIU/[place] [address] [phone] Hemoglobin A1c (Glyco HGB) 5.5 % N 4.0-5.6 21 Lipid Profile 03/14/2016 [facility] Triglycerides 86 mg/dL N 22 (Trig/Chol/HDL) [address] [place] [address] [phone] Cholesterol 200 mg/dL N 23 HDL Cholesterol 76.9 mg/dL N 24 LDL Cholesterol 106 mg/dL N 25 Comp Metabolic Panel 03/14/2016 [facility] Sodium 138 mmol/L N 133-145 [address] [place] [address] [phone] Potassium 4.5 mmol/L N 3.5-5.0 Chloride 106 mmol/L N 101-111 Co2 Carbon Dioxide 29 mmol/L N 22-32 Anion Gap 3 mmol/L N 2-11 Glucose 91 mg/dL N 70-100 Blood Urea Nitrogen 14 mg/dL N 6-24 Creatinine 0.88 mg/dL N 0.51-0.95 BUN/Creatinine Ratio 15.9 N 8-20 Calcium 9.1 mg/dL N 8.6-10.3 Total Protein 6.8 g/dL N 6.4-8.9 Albumin 4.0 g/dL N 3.2-5.2 Globulin 2.8 g/dL N 2-4 Albumin/Globulin Ratio 1.4 N 1-3 Total Bilirubin 0.90 mg/dL N 0.2-1.0 Alkaline Phosphatase 71 U/L N 34-104 Alt 15 U/L N 7-52 Ast 16 U/L N 13-39 Egfr Non- 64.7 N >60 Egfr 83.2 N >60 26 Laboratory test 03/14/2016 [facility] TSH (Thyroid 0.33 Low 0.34-5.60 [address] Stim Horm) mcIU/[place] [address] [phone] Hemoglobin A1c (Glyco HGB) 5.5 % N Less than 6.0 28 Comp Metabolic Panel 01/19/2015 [facility] Sodium 138 mmol/L N 133-[address] [place] [address] [phone] Potassium 4.7 mmol/L N 3.5-5.0 Chloride 104 mmol/L N 101-111 Co2 Carbon Dioxide 30 mmol/L N 22-32 Anion Gap 4 mmol/L N 2-11 Glucose 85 mg/dL N 70-100 Blood Urea Nitrogen 15 mg/dL N 6-24 Creatinine 0.80 mg/dL N 0.51-0.95 BUN/Creatinine Ratio 18.8 N 8-20 Calcium 9.3 mg/dL N 8.6-10.3 Total Protein 7.0 g/dL N 6.4-8.9 Albumin 4.2 g/dL N 3.2-5.2 Globulin 2.8 g/dL N 2-4 Albumin/Globulin Ratio 1.5 N 1-3 Total Bilirubin 0.80 mg/dL N 0.2-1.0 Alkaline Phosphatase 83 U/L N 34-104 Alt 21 U/L N 7-52 Ast 19 U/L N 13-39 Egfr Non- 72.4 N >60 Egfr 93.2 N >60 29 Lipid Profile 01/19/2015 [facility] Triglycerides 73 mg/dL N 30 (Trig/Chol/HDL) [address] [place] [address] [phone] Cholesterol 197 mg/dL N 31 HDL Cholesterol 74.1 mg/dL N 32 LDL Cholesterol 108 mg/dL N 33 Lyme Western 07/30/2014 [facility] Lyme Disease Negative N Negative Blot [address] [place] [address] [phone] Lyme Disease IgG Bands Present No bands detecte <SEE NOTE> kDa N 34 Lyme Disease IgM Ab WB Negative N Negative Lyme Disease IgM Bands Present No bands detecte <SEE NOTE> kDa N 35 Lyme Disease Interpretation See Comment N 36 Basic Metabolic Panel 03/31/2014 Sodium 137 mmol/L N 133-145 Potassium 4.4 mmol/L N 3.5-5.0 Chloride 106 mmol/L N 101-111 Co2 Carbon Dioxide 26 mmol/L N 22-32 Anion Gap 5 mmol/L N 2-11 Glucose 113 mg/dL High 70-100 Blood Urea Nitrogen 17 mg/dL N 6-24 Creatinine 0.84 mg/dL N 0.51-0.95 BUN/Creatinine Ratio 20.2 High 8-20 Calcium 8.9 mg/dL N 8.6-10.3 Egfr Non- 68.7 N >60 Egfr 88.4 N >60 37 Comp Metabolic Panel 01/11/2014 [facility] Sodium 138 mmol/L N 133-[address] [place] [address] [phone] Potassium 4.3 mmol/L N 3.5-5.0 39 Chloride 105 mmol/L N 101-111 Co2 Carbon Dioxide 28 mmol/L N 22-32 Anion Gap 5 mmol/L N 2-11 Glucose 85 mg/dL N 70-100 Blood Urea Nitrogen 18 mg/dL N 6-24 Creatinine 0.82 mg/dL N 0.51-0.95 BUN/Creatinine Ratio 22.0 High 8-20 Calcium 8.9 mg/dL N 8.6-10.3 Total Protein 6.9 g/dL N 6.4-8.9 Albumin 4.0 g/dL N 3.2-5.2 Globulin 2.9 g/dL N 2-4 Albumin/Globulin Ratio 1.4 N 1-3 Total Bilirubin 0.80 mg/dL N 0.2-1.0 Alkaline Phosphatase 71 U/L N 34-104 Alt 19 U/L N 7-52 Ast 17 U/L N 13-39 Egfr Non- 70.6 N >60 Egfr 90.8 N >60 40 Lipid Profile 01/11/2014 [facility] Triglycerides 85 mg/dL N 41 (Trig/Chol/HDL) [address] [place], [place] [id number] [phone] Cholesterol 193 mg/dL N 42 HDL Cholesterol 68.5 mg/dL N 43 LDL Cholesterol 108 mg/dL N 44 Laboratory 01/11/2014 [facility] TSH (Thyroid 0.41 N 0.34- 5.60 45 test finding [address] Stimulating Horm) IU/[place] [address] [phone] Lipid Profile 07/14/2013 [facility] Triglycerides 92 mg/dL N 46, (Trig/Chol/HDL [address] ) [place], [place] [id number] [phone] Cholesterol 164 mg/dL N 48 HDL Cholesterol 58.1 mg/dL N 49 LDL Cholesterol 88 mg/dL N 50 Comp Metabolic Panel 07/14/2013 [facility] Sodium 140 mmol/L N 133-[address] [place] [address] [phone] Potassium 4.5 mmol/L N 3.7-5.6 Chloride 107 mmol/L N 101-111 Co2 Carbon Dioxide 28 mmol/L N 22-32 Anion Gap 5 mmol/L N 2-11 Glucose 103 mg/dL High 70-100 Blood Urea Nitrogen 16 mg/dL N 6-24 Creatinine 0.90 mg/dL N 0.51-0.95 BUN/Creatinine Ratio 17.8 N 8-20 Calcium 9.1 mg/dL N 8.6-10.3 Total Protein 6.9 g/dL N 6.4-8.9 Albumin 4.2 g/dL N 3.2-5.2 Globulin 2.7 g/dL N 2-4 Albumin/Globulin Ratio 1.6 N 1-3 Total Bilirubin 0.80 mg/dL N 0.2-1.0 Alkaline Phosphatase 60 U/L N 34-104 Alt 13 U/L N 7-52 Ast 13 U/L N 13-39 Egfr Non- 63.7 N >60 Egfr 81.9 N >60 51 Laboratory test 07/14/2013 [facility] TSH (Thyroid 0.37 N 0.34 -5.60 [address] Stimulating IU/[place] [address] Horm) [phone] Free T4 1.43 ng/mL High 0.61-1.12 53 Laboratory test 04/23/2013 [facility] Ferritin 52.6 ng/mL 11- [address] [place] [address] [phone] TSH (Thyroid Stimulating Horm) 6.07 IU/mL High 0.34-5.60 CBC With 04/23/2013 [facility] White Blood 4.6 10^3/uL Low 4.8 -10.[address] [place] [address] [phone] Red Blood Count 4.26 10^6/uL 4.0-5.4 Hemoglobin 13.4 g/dL 12.0-16.0 Hematocrit 39 % 35-47 Mean Corpuscular Volume 90 fL 80-97 Mean Corpuscular Hemoglobin 31 pg 27-31 Mean Corpuscular HGB Conc 35 g/dL 31-36 Red Cell Distribution Width 14 % 10.5-15 Platelet Count 288 10^3/uL 150-450 Mean Platelet Volume 9 um3 7.4-10.4 Abs Neutrophils 2.2 10^3/uL 1.5-7.7 Abs Lymphocytes 1.8 10^3/uL 1.0-4.8 Abs Monocytes 0.3 10^3/uL 0-0.8 Abs Eosinophils 0.2 10^3/uL 0-0.6 Abs Basophils 0 10^3/uL 0-0.2 Abs Nucleated RBC 0 10^3/uL Neutrophil % 48 % 38-83 Lymphocytes % 37 % 25-47 Monocytes % 2 % 0-13 Eosinophils % 8 % High 0-6 Basophil % 1 % 0-2 Reactive Lymph % 4 % 0-6 RBC Morphology Normal Normal Lipid Profile 07/14/2012 [facility] Triglycerides 59 mg/dL 40 -200 (Trig/Chol/HDL) [address] [place] [address] [phone] Cholesterol 195 mg/dL Less than 200 HDL Cholesterol 68 mg/dL High 40-60 54 Cholesterol/HDL Ratio 2.9 Average 1-4.44 LDL Cholesterol 115.2 mg/dL High Less Than 100 55 Liver Function 07/14/2012 [facility] Total Protein 6.1 g/dL Low 6.2-8.1 Panel [address] [place] [address] [phone] Albumin 3.9 g/dL 3.2-5.2 Globulin 2.2 g/dL 2-4 Albumin/Globulin Ratio 1.8 1-3 Total Bilirubin 0.7 mg/dL 0.4-1.5 Direct Bilirubin 0.1 mg/dL 0.1-0.5 Indirect Bilirubin 0.6 mg/dL 0.3-1.0 Alkaline Phosphatase 71 U/L 30-110 Alt 22 U/L 14-54 Ast 21 U/L 12-42 Comp Metabolic Panel 04/18/2012 [facility] Sodium 141 mmol/L 133-145 [address] [place] [address] [phone] Potassium 4.3 mmol/L 3.5-5.0 Chloride 108 mmol/L 101-111 Co2 Carbon Dioxide 29.0 mmol/L 22-32 Anion Gap 4.0 mmol/L 2-11 Glucose 95 mg/dL 70-100 Blood Urea Nitrogen 13 mg/dL 6-24 Creatinine 0.90 mg/dL 0.50-1.40 BUN/Creatinine Ratio 14.4 8-20 Calcium 9.6 mg/dL 8.1-9.9 Total Protein 7.1 g/dL 6.2-8.1 Albumin 4.1 g/dL 3.2-5.2 Globulin 3.0 g/dL 2-4 Albumin/Globulin Ratio 1.4 1-3 Total Bilirubin 1.4 mg/dL 0.4-1.5 Alkaline Phosphatase 73 U/L 30-110 Alt 16 U/L 14-54 Ast 17 U/L 12-42 Egfr Non- 63.9 >60 Egfr 82.1 >60 56 Lipid Profile 04/18/2012 [facility] Triglycerides 66 mg/dL 40 -200 (Trig/Chol/HDL) [address] [place] [address] [phone] Cholesterol 253 mg/dL High Less than 200 HDL Cholesterol 68 mg/dL High 40-60 57 Cholesterol/HDL Ratio 3.7 Average 1-4.44 LDL Cholesterol 171.8 mg/dL High Less Than 100 58 Laboratory test 04/18/2012 [facility] TSH (Thyroid 3.35 0.34- 5.60 [address] Stimulating miu/[place] [address] Horm) [phone] Free T4 0.85 ng/mL 0.61-1.24 60 Laboratory test 04/15/2012 [facility] Cytology RUN DATE: finding [address] <SEE NOTE> [place] [address] [phone] 1 Desirable: <150 Borderline High: 150-199 High: 200-499 Very High: >500 2 Desirable: <200 Borderline High: 200-239 High: >239 3 Low: <40 Desirable: 40-60 High: >60 4 Desirable: <100 Near Optimal: 100-129 Borderline High: 130-159 High: 160-189 Very High: >189 5 Because ethnic data is not always readily available, this report includes an eGFR for both -Americans and non- Americans. The National Kidney Disease Education Program (NKDEP) does not endorse the use of the MDRD equation for patients that are not between the ages of 18 and 70, are , have extremes of body size, muscle mass, or nutritional status, or are non- or non-. According to the National Kidney Foundation, irrespective of diagnosis, the stage of the disease is based on the level of kidney function: Stage Description GFR(mL/min/1.73 m(2)) 1 Kidney damage with normal or decreased GFR 90 2 Kidney damage with mild decrease in GFR 60-89 3 Moderate decrease in GFR 30-59 4 Severe decrease in GFR 15-29 5 Kidney failure <15 (or dialysis) 6 Associate Professor Of Radiology: [id number] Desirable: <150 Borderline High: 150-199 High: 200-499 Very High: >500 8 Desirable: <200 Borderline High: 200-239 High: >239 9 Low: <40 Desirable: 40-60 High: >60 10 Desirable: <100 Near Optimal: 100-129 Borderline High: 130-159 High: 160-189 Very High: >189 11 Because ethnic data is not always readily available, this report includes an eGFR for both -Americans and non- Americans. The National Kidney Disease Education Program (NKDEP) does not endorse the use of the MDRD equation for patients that are not between the ages of 18 and 70, are , have extremes of body size, muscle mass, or nutritional status, or are non- or non-. According to the National Kidney Foundation, irrespective of diagnosis, the stage of the disease is based on the level of kidney function: Stage Description GFR(mL/min/1.73 m(2)) 1 Kidney damage with normal or decreased GFR 90 2 Kidney damage with mild decrease in GFR 60-89 3 Moderate decrease in GFR 30-59 4 Severe decrease in GFR 15-29 5 Kidney failure <15 (or dialysis) 12 Because ethnic data is not always readily available, this report includes an eGFR for both -Americans and non- Americans. The National Kidney Disease Education Program (NKDEP) does not endorse the use of the MDRD equation for patients that are not between the ages of 18 and 70, are , have extremes of body size, muscle mass, or nutritional status, or are non- or non-. According to the National Kidney Foundation, irrespective of diagnosis, the stage of the disease is based on the level of kidney function: Stage Description GFR(mL/min/1.73 m(2)) 1 Kidney damage with normal or decreased GFR 90 2 Kidney damage with mild decrease in GFR 60-89 3 Moderate decrease in GFR 30-59 4 Severe decrease in GFR 15-29 5 Kidney failure <15 (or dialysis) 13 Because ethnic data is not always readily available, this report includes an eGFR for both -Americans and non- Americans. The National Kidney Disease Education Program (NKDEP) does not endorse the use of the MDRD equation for patients that are not between the ages of 18 and 70, are , have extremes of body size, muscle mass, or nutritional status, or are non- or non-. According to the National Kidney Foundation, irrespective of diagnosis, the stage of the disease is based on the level of kidney function: Stage Description GFR(mL/min/1.73 m(2)) 1 Kidney damage with normal or decreased GFR 90 2 Kidney damage with mild decrease in GFR 60-89 3 Moderate decrease in GFR 30-59 4 Severe decrease in GFR 15-29 5 Kidney failure <15 (or dialysis) 14 To be drawn in May 09 Desirable: <150 Borderline High: 150-199 High: 200-499 Very High: >500 16 Desirable: <200 Borderline High: 200-239 High: >239 17 Low: <40 Desirable: 40-60 High: >60 18 Desirable: <100 Near Optimal: 100-129 Borderline High: 130-159 High: 160-189 Very High: >189 19 Because ethnic data is not always readily available, this report includes an eGFR for both -Americans and non- Americans. The National Kidney Disease Education Program (NKDEP) does not endorse the use of the MDRD equation for patients that are not between the ages of 18 and 70, are , have extremes of body size, muscle mass, or nutritional status, or are non- or non-. According to the National Kidney Foundation, irrespective of diagnosis, the stage of the disease is based on the level of kidney function: Stage Description GFR(mL/min/1.73 m(2)) 1 Kidney damage with normal or decreased GFR 90 2 Kidney damage with mild decrease in GFR 60-89 3 Moderate decrease in GFR 30-59 4 Severe decrease in GFR 15-29 5 Kidney failure <15 (or dialysis) 20 FASTING 10 HOUR 21 Therapeutic target for the treatment of diabetes mellitus patients is <7% HBA1C, and in selective patients <6.0%. Please refer to [place] [employer] diabetic care guidelines for further information. 22 Desirable <150 Borderline high 150-199 High 200-499 Very High >500 23 Desirable <200 Borderline high 200-239 High >239 24 Low <40 Desirable: 40-60 High: >60 25 Desirable: <100 mg/dL Near Optimal: 100-129 mg/dL Borderline High: 130-159 mg/dL High: 160-189 mg/dL Very High: >189 mg/dL 26 Because ethnic data is not always readily available, this report includes an eGFR for both -Americans and non- Americans. The National Kidney Disease Education Program (NKDEP) does not endorse the use of the MDRD equation for patients that are not between the ages of 18 and 70, are , have extremes of body size, muscle mass, or nutritional status, or are non- or non-. According to the National Kidney Foundation, irrespective of diagnosis, the stage of the disease is based on the level of kidney function: Stage Description GFR(mL/min/1.73 m(2)) 1 Kidney damage with normal or decreased GFR 90 2 Kidney damage with mild decrease in GFR 60-89 3 Moderate decrease in GFR 30-59 4 Severe decrease in GFR 15-29 5 Kidney failure <15 (or dialysis) 27 FASTING 10 HOUR 28 Therapeutic target for the treatment of diabetes Mellitus patients is <7% HBA1C, and in selective patients <6.0%.Please refer to [place] [employer] Diabetic care guidelines for further information. 29 Because ethnic data is not always readily available, this report includes an eGFR for both -Americans and non- Americans. The National Kidney Disease Education Program (NKDEP) does not endorse the use of the MDRD equation for patients that are not between the ages of 18 and 70, are , have extremes of body size, muscle mass, or nutritional status, or are non- or non-. According to the National Kidney Foundation, irrespective of diagnosis, the stage of the disease is based on the level of kidney function: Stage Description GFR(mL/min/1.73 m(2)) 1 Kidney damage with normal or decreased GFR 90 2 Kidney damage with mild decrease in GFR 60-89 3 Moderate decrease in GFR 30-59 4 Severe decrease in GFR 15-29 5 Kidney failure <15 (or dialysis) 30 Desirable <150 Borderline high 150-199 High 200-499 Very High >500 31 Desirable <200 Borderline high 200-239 High >239 32 Low <40 Desirable: 40-60 High: >60 33 Desirable: <100 mg/dL Near Optimal: 100-129 mg/dL Borderline High: 130-159 mg/dL High: 160-189 mg/dL Very High: >189 mg/dL 34 No bands detected 35 No bands detected 36 Specific serologic response to B. burgdorferi infection is not detected, but cannot rule out early infection during which low or undetectable antibody levels to B. burgdorferi may be present. If clinically indicated, a new serum specimen should be submitted in 7-14 days. ADDITIONAL INFORMATION CDC criteria require >=5 bands for IgG or >=2 bands for IgM for the Immunoblot to be considered positive. Bands (e.g.,p41) may be detected in patients without Lyme disease, and patterns not meeting the CDC criteria should be interpreted with caution. Immunoblot should be ordered only on specimens that are positive or equivocal by a FDA-licensed Lyme disease antibody screening test (e.g., EIA). Test Performed by: [place] [address] Kaiako Kura [place]: Reece Trevino II, M.D., Ph.D. 37 Because ethnic data is not always readily available, this report includes an eGFR for both -Americans and non- Americans. The National Kidney Disease Education Program (NKDEP) does not endorse the use of the MDRD equation for patients that are not between the ages of 18 and 70, are , have extremes of body size, muscle mass, or nutritional status, or are non- or non-. According to the National Kidney Foundation, irrespective of diagnosis, the stage of the disease is based on the level of kidney function: Stage Description GFR(mL/min/1.73 m(2)) 1 Kidney damage with normal or decreased GFR 90 2 Kidney damage with mild decrease in GFR 60-89 3 Moderate decrease in GFR 30-59 4 Severe decrease in GFR 15-29 5 Kidney failure <15 (or dialysis) 38 FASTING 10 HOUR 39 Potassium reference range changed effective 12/27/13 40 Because ethnic data is not always readily available, this report includes an eGFR for both -Americans and non- Americans. The National Kidney Disease Education Program (NKDEP) does not endorse the use of the MDRD equation for patients that are not between the ages of 18 and 70, are , have extremes of body size, muscle mass, or nutritional status, or are non- or non-. According to the National Kidney Foundation, irrespective of diagnosis, the stage of the disease is based on the level of kidney function: Stage Description GFR(mL/min/1.73 m(2)) 1 Kidney damage with normal or decreased GFR 90 2 Kidney damage with mild decrease in GFR 60-89 3 Moderate decrease in GFR 30-59 4 Severe decrease in GFR 15-29 5 Kidney failure <15 (or dialysis) 41 Desirable <150 Borderline high 150-199 High 200-499 Very High >500 42 Desirable <200 Borderline high 200-239 High >239 43 Low <40 Desirable: 40-60 High: >60 44 Desirable <100 Near Optimal 100-129 Borderline high 130-159 High 160-189 Very High >189 45 FASTING 10 HOUR 46 PT IS FASTING 47 Desirable <150 Borderline high 150-199 High 200-499 Very High >500 48 Desirable <200 Borderline high 200-239 High >239 49 Low <40 Desirable: 40-60 High: >60 50 Desirable <100 Near Optimal 100-129 Borderline high 130-159 High 160-189 Very High >189 51 Because ethnic data is not always readily available, this report includes an eGFR for both -Americans and non- Americans. The National Kidney Disease Education Program (NKDEP) does not endorse the use of the MDRD equation for patients that are not between the ages of 18 and 70, are , have extremes of body size, muscle mass, or nutritional status, or are non- or non-. According to the National Kidney Foundation, irrespective of diagnosis, the stage of the disease is based on the level of kidney function: Stage Description GFR(mL/min/1.73 m(2)) 1 Kidney damage with normal or decreased GFR 90 2 Kidney damage with mild decrease in GFR 60-89 3 Moderate decrease in GFR 30-59 4 Severe decrease in GFR 15-29 5 Kidney failure <15 (or dialysis) 52 PT IS FASTING 53 PT IS FASTING 54 HDL Interpretation: Undesirable: High Risk: Less than 40 mg/dL Desirable: Low Risk: Greater than 60 mg/dL 55 LDL Interpretation: Low Risk Optimal Level: LDL Less than 100 mg/dL Near or Above Optimal: LDL 100-129 mg/dL Borderline High Risk: LDL 130-159 mg/dL High Risk: LDL 160-189 mg/dL Very High Risk: LDL Greater than 189 mg/dL 56 Because ethnic data is not always readily available, this report includes an eGFR for both -Americans and non- Americans. The National Kidney Disease Education Program (NKDEP) does not endorse the use of the MDRD equation for patients that are not between the ages of 18 and 70, are , have extremes of body size, muscle mass, or nutritional status, or are non- or non-. According to the National Kidney Foundation, irrespective of diagnosis, the stage of the disease is based on the level of kidney function: Stage Description GFR(mL/min/1.73 m(2)) 1 Kidney damage with normal or decreased GFR 90 2 Kidney damage with mild decrease in GFR 60-89 3 Moderate decrease in GFR 30-59 4 Severe decrease in GFR 15-29 5 Kidney failure <15 (or dialysis) 57 HDL Interpretation: Undesirable: High Risk: Less than 40 MG/DL Desirable: Low Risk: Greater than 60 MG/DL 58 LDL Interpretation: Low Risk Optimal Level: LDL Less than 100 MG/DL Near or Above Optimal: LDL 100-129 MG/DL Borderline High Risk: LDL 130-159 MG/DL High Risk: LDL 160-189 MG/DL Very High Risk: LDL Greater than 189 MG/DL 59 PT IS FASTING 60 PT IS FASTING 61 RUN DATE: 04/16/12 [facility] LAB LIVE PAGE 1 RUN TIME: [id number] [place], [place] [address] Specimen Inquiry Name: KANGJULIANA : [address]: Estrella Petit NP Acct: [id number] Unit: [id number] AGE: 61 Location: [facility] Re04/15/12 SEX: F Status: REG REF SPEC: [id number] WES: 04/15/12-[address] [facility] [address]: Estrella Petit CONTROL ROOM TENDER REQ: [id number] RECD: 04/16/12 STATUS: DYLAN RIDDLE DR: Hallie Trejo MD _ ORDERED: IMAGE ANALYSIS FINAL DIAGNOSIS Negative for Intraepithelial lesion or Malignancy A. Ectocervical/Endocervical Specimen Adequacy: Satisfactory of evaluation Transformation zone component identified Patient Information: HPV: Thin Layer Pap Test w/reflex to high risk HPV DNA testing when ASCUS Actual Specimen Date: 04/15/12 LMP If Unknown: at age 51 Cautery: N IUD: N Lesion, grossly demonstrate: N ?: N Post Menopausal?: Y Hysterectomy?: N Previous Abnormal Pap Smears?:Y If Yes, enter Diagnosis: patient reports Cryo surgery in for unknown dx Other Pertinent History: Prior Unknown Signed (signature on file) HUEY Bennett (ASCP) 04/16 1258 This Pap test was evaluated with the assistance of the CURRENT[employer] Test Imaging System. Due to cytologic findings at the production superintendent microscope, comprehensive manual rescreening by a Curam Developer may be required. The Pap Smear is a screening test designed to aid in the detection of premalignant and malignant conditions of the uterine cervix. It is not a diagnostic procedure and should not be used as the sole means of detecting cervical cancer. Both false- positive and false- negative reports do occur. Depending on your risk status, a Pap smear shoudl be obtained and evaluated every 1-3 years. END OF REPORT * ML=Testing performed at Main Lab DEPARTMENT OF PATHOLOGY, [address] [place] [address] Bossman Krishna M.D. Director [facility] Permit #[id number] Procedures Date Code Description Status 08/19/2018 79035 EKG Tracing & Interpretation Completed 02/11/2018 68313 Left Heart Cath. Incl S/I Coronaries, Angio S/I V Gram Completed If Done 02/10/2018 48856 Moderate Sedation Services; Same Phys Intl 15 Mins; PT Completed >=5 Years 02/10/2018 77404 Color Flow Doppler/Interp & Reprt Completed 02/10/2018 34518 Pulse Wave/Continuous-Interp.RPT Completed 02/10/2018 21361 Echocardiography, Transesophageal, Real Time W/Image Completed 2D W/W/O M-M 02/06/2018 67391 Echocardiography, Transesophageal, Real Time W/Image Completed 2D W/W/O M-M 01/27/2018 70507 Echocardiography, Transesophageal, Real Time W/Image Completed 2D W/W/O M-M 01/22/2018 94322 ECHO Stress Test Incl Perf Contiuous ekg Monitoring Completed W/Phys Superv 01/15/2018 30890 ECHO Transthoracic, Real-Time 2D With Doppler And Completed Color Flow 01/15/2018 20212 ECHO Transthoracic, Real-Time 2D With Doppler And Completed Color Flow 01/09/2018 58534 EKG Tracing & Interpretation Completed 04/18/2017 [id number] Mammogram Completed 04/18/2017 [id number] Bone Mineral Density Test Completed 04/04/2017 02996 Admin & Interp Of Health Risk Assessment w/ Patient Completed 10/25/2016 37698 EKG Tracing & Interpretation Completed 06/28/2016 77785 Inject/Drain Joint/Bursa Major W/O US Completed 04/05/2016 [id number] Mammogram Completed 10/10/2015 02615 EKG Tracing & Interpretation Completed 05/13/2015 [id number] Colonoscopy Completed 02/14/2015 [id number] Mammogram Completed 11/16/2014 68846 EKG Tracing & Interpretation Completed 03/10/2014 98169 EKG Tracing & Interpretation Completed 09/11/2013 36972 EKG Tracing & Interpretation Completed 03/06/2013 88084 EKG Tracing & Interpretation Completed 08/26/2012 37521 ECHO Transthoracic, Real-Time 2D With Doppler And Completed Color Flow 05/20/2012 60949 Stress Test Completed 05/20/2012 21277 Myocardial Perfusion Imaging Tomographic (Spect) Completed Multiple Studies 05/15/2012 95380 EKG Tracing & Interpretation Completed 04/29/2012 59471 ECHO Transthoracic, Real-Time 2D With Doppler And Completed Color Flow 04/15/2012 02930 EKG Tracing & Interpretation Completed Encounters Type Date Location Provider Dx Diagnosis Office Visit 08/19/2018 [facility] Kiel Bajwa E78.00 Pure 3:00p Anup Gordon hypercholesterolemi a, unspecified I25.10 Athscl heart disease of [place] coronary artery w/o ang pctrs I35.0 Nonrheumatic aortic (valve) stenosis I50.30 Unspecified diastolic (congestive) heart failure I44.7 Left bundle-branch block, unspecified I10 Essential (primary) hypertension Office Visit 05/28/2018 2:20p [facility] Oleg Cruz, CONTROL ROOM TENDER M54.32 Sciatica , left Medicine - [facility] side Office Visit 04/07/2018 1:00p [facility] Estrella Petit, Z00.01 Encounter for Medicine - [facility] N.P. general adult medical exam w abnormal findings I10 Essential (primary) hypertension I35.0 Nonrheumatic aortic (valve) stenosis E78.00 Pure hypercholesterolemia, unspecified E03.8 Other specified hypothyroidism K21.9 Gastro-esophageal reflux disease without esophagitis J45.901 Unspecified asthma with (acute) exacerbation Office Visit 03/18/2018 3:40p [facility] Estrella Petit, R10.84 Generalized Medicine - N.P. abdominal pain [facility] R10.812 Left upper quadrant abdominal tenderness R10.814 Left lower quadrant abdominal tenderness Office Visit 03/03/2018 3:30p [facility] Rhoda Gaston, I35.0 Nonrheumatic Of [facility] CONTROL ROOM TENDER aortic (valve) stenosis I10 Essential (primary) hypertension I44.7 Left bundle-branch block, unspecified Office Visit 02/20/2018 3:00p [place] Leny Clark R06.02 Shortness of Cardiology Of MD Alrin, breath [employer] Officer AT [facility], FSCAI Office Visit 01/09/2018 2:20p [place] Kiel Bajwa I10 Essential Cardiology Of Anup Gordon (primary) [facility] hypertension I35.0 Nonrheumatic aortic (valve) stenosis E78.00 Pure hypercholesterolemia, unspecified I44.7 Left bundle-branch block, unspecified Office Visit 10/02/2017 3:40p [facility] Estrella Petit, I10 Essential ( primary) Medicine - [facility] N.P. hypertension M85.89 Oth disrd of bone density and structure, multiple sites Office Visit 08/21/2017 2:40p [facility] Estrella Petit, M25.512 Pain in left Medicine - [facility] N.P. shoulder Office Visit 04/04/2017 1:00p [facility] Oleg Cruz NP Z00.00 Encntr for Medicine - [facility] general adult medical exam w/o abnormal findings I10 Essential (primary) hypertension I35.0 Nonrheumatic aortic (valve) stenosis E78.00 Pure hypercholesterolemia, unspecified E03.8 Other specified hypothyroidism K21.9 Gastro-esophageal reflux disease without esophagitis M54.5 Low back pain Z12.31 Encntr screen mammogram for malignant neoplasm of breast Z13.820 Encounter for screening for osteoporosis Z23 Encounter for immunization Office Visit 10/25/2016 3:00p [facility] David Mahajan, I44.7 Left bundle-branch Of [employer] Officer AT [facility] [place].DAngelina, FACC, block, unspecified FSCAI I35.0 Nonrheumatic aortic (valve) stenosis Office Visit 10/01/2016 4:00p [facility] Estrella Petit, I10 Essential Medicine - [facility] N.P. (primary) hypertension Office Visit 06/28/2016 1:30p Orthopedic Ant F M71.22 Synovial cyst of Services Of MD Angie popliteal space C.M.A. [[place]], left knee M25.562 Pain in left knee M17.12 Unilateral primary osteoarthritis, left knee Office Visit 06/25/2016 2:40p [facility] Estrella Petit, M25.562 Pain in left knee Medicine - N.P. [facility] Office Visit 04/13/2016 3:00p [facility] Oleg Cruz NP J20.9 Acute bronchitis, Medicine - unspecified [facility] Office Visit 03/19/2016 1:40p [facility] Estrella Petit, Z00.01 Encounter for Medicine - N.P. general adult [facility] medical exam w abnormal findings Z12.31 Encntr screen mammogram for malignant neoplasm of breast I10 Essential (primary) hypertension E78.00 Pure hypercholesterolemia, unspecified I35.0 Nonrheumatic aortic (valve) stenosis E03.8 Other specified hypothyroidism K21.9 Gastro-esophageal reflux disease without esophagitis L30.4 Erythema intertrigo Z23 Encounter for immunization Office Visit 10/10/2015 2:40p [facility] David Mahajan, I10 Essential (primary) Of [employer] Officer AT [facility] M.D., FAC, hypertension FSCAI I44.7 Left bundle-branch block, unspecified I35.0 Nonrheumatic aortic (valve) stenosis E78.5 Hyperlipidemia, unspecified Office Visit 07/27/2015 4:20p [facility] Estrella Petit, I10 Essential ( primary) Medicine - [facility] N.P. hypertension R06.2 Wheezing Office Visit 06/09/2015 1:40p [facility] Oleg Cruz NP J06.9 Acute upper Medicine - respiratory [facility] infection, unspecified Office Visit 01/25/2015 1:40p [facility] Estrella Petit, Z00.00 Encntr for general Medicine - N.P. adult medical exam [facility] w/o abnormal findings I10 Essential (primary) hypertension E78.0 Pure hypercholesterolemia E03.8 Other specified hypothyroidism I35.0 Nonrheumatic aortic (valve) stenosis K21.9 Gastro-esophageal reflux disease without esophagitis Z23 Encounter for immunization Z12.39 Encounter for oth screening for malignant neoplasm of breast Office Visit 11/16/2014 2:40p [facility] David Mahajan, I10 Essential (primary) Of [employer] Officer AT [facility].D., [facility], hypertension FSCAI I35.0 Nonrheumatic aortic (valve) stenosis I44.7 Left bundle-branch block, unspecified Office Visit 07/30/2014 10:00a [facility] Venkatesh Thomas, E906.4 [facility] Arthropod 916.4 Injury Superficial Insect Bite Hip Thigh Leg Ankle NV No Inf Office Visit 07/15/2014 1:40p [facility] Oleg Cruz NP 729.5 Pain In Limb Medicine - [facility] Office Visit 04/27/2014 1:20p [facility] Estrella Petit, 729.5 Pain In Limb [facility] 728.89 Muscle Disorders Other Office Visit 03/31/2014 3:30p [facility] Nurse Visit 401.1 Hypertension Benign Of [employer] Officer IC Office Visit 03/10/2014 3:40p [facility] David Mahajan, 401.1 Hypertension Benign Of [employer] Officer AT [facility] M.D., FAC, FSCAI 272.4 Hyperlipidemia Other Unspec 424.1 Aortic Valve Disorder 426.3 Left Bundle Branch Block Other Office Visit 01/15/2014 1:00p [facility] Estrella Petit, 401.1 Hypertension Benign Medicine - N.P. [facility] 300.00 Anxiety State Unspec Office Visit 09/11/2013 3:30p [facility] aDvid Mahajan, 401.1 Hypertension Of [employer] Officer AT [facility].D., FAC, Benign FSCAI 424.1 Aortic Valve Disorder 272.4 Hyperlipidemia Other Unspec 426.3 Left Bundle Branch Block Other Office Visit 07/15/2013 1:40p [facility] Estrella Petit, V70.0 Examination Medicine - N.P. General Medical [facility] Routine AT Health Care Facility 401.1 Hypertension Benign 424.1 Aortic Valve Disorder 272.4 Hyperlipidemia Other Unspec 244.9 Hypothyroidism Other Unspec 530.81 Esophageal Reflux Office Visit 06/18/2013 10:40a [facility] Estrella Petit, 845.09 Sprains & Medicine - [facility] N.P. Strains Ankle Other Office Visit 04/23/2013 11:40a [facility] Estrella Petit, 703.8 Nail Diseases Medicine - [facility] N.P. Other Spec Office Visit 03/06/2013 4:00p [facility] David Mahajan, 424.1 Aortic Valve Of [employer] Officer AT [facility].D., [facility], Disorder FSCAI 426.3 Left Bundle Branch Block Other 401.9 Hypertension Unspec Office Visit 02/10/2013 2:00p [facility] Estrella Petit, 008.69 Enteritis Due To Medicine - N.P. Other Viral [facility] Enteritis Office Visit 11/21/2012 3:40p [facility] Estrella Petit, 401.1 Hypertension Medicine - N.P. Benign [facility] 466.0 Bronchitis Acute Office Visit 09/04/2012 2:00p [facility] David Mahajan, 424.1 Aortic Valve Of [facility] M.D., [facility], Disorder FSCAI Office Visit 06/25/2012 3:00p [facility] David Mahajan, 426.3 Left Bundle Of [employer] Officer AT [facility] M.D., FACC, Branch Block FSCAI Other 401.9 Hypertension Unspec 424.1 Aortic Valve Disorder Office Visit 05/22/2012 3:00p [facility] David Mahajan, 424.1 Aortic Valve Of [facility] M.D., FACC, Disorder FSCAI 425.4 Cardiomyopathy Other Prim Office Visit 05/16/2012 1:40p [facility] Estrella Petit, 401.1 Hypertension Benign Medicine - N.P. [facility] 272.4 Hyperlipidemia Other Unspec Office Visit 05/15/2012 1:15p [facility] David Mahajan, 424.1 Aortic Valve Of [facility] M.D., FACC, Disorder FSCAI 425.4 Cardiomyopathy Other Prim 401.9 Hypertension Unspec Office Visit 04/15/2012 3:20p [facility] Estrella Petit, V70.0 Examination Medicine - N.P. 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 Gordon in 5 months.I50.30 Diastolic heart dwnlsupT15 Essential (primary) hypertensionRecommendations:Please increase Aldactone/Spironolactone to 37.5mg by mouth daily. which is 1.5 tablets by mouth daily Please potassium intake and get repeat labs in 2 weeks.
[2018-09-26 18:41] VITALS: BP 146/57
--- NOTE | 2018-09-26 19:15 | UC ---
Skin Complaint HPI - History of Current Complaint Chief Complaint: UCSkin Time Seen by Provider: 09/26/18 18:54 Stated Complaint: BEE STING Pain Intensity: 3 - Allergy/Home Medications Allergies/Adverse Reactions: Allergies Allergy/AdvReac Type Severity Reaction Status Date / Time No Known Allergies Allergy Verified 09/26/18 18:42 Home Medications: Home Medications Spironolactone TAB* [Aldactone TAB*] 25 mg PO DAILY 09/26/18 [History Confirmed 09/26/18] PMH/Surg Hx/FS Hx/Imm Hx - Surgical History Surgical History: None - Family History Known Family History: Positive: Hypertension - Social History Alcohol Use: Occasionally Alcohol Amount: 2-3/DAY Substance Use Type: None Smoking Status (MU): Never Smoked Tobacco - Immunization History Most Recent Influenza Vaccination: fall 2013 Physical Exam Vital Signs: Initial Vital Signs Temp 97.4 F 09/26/18 18:37 Pulse 68 09/26/18 18:37 Resp 16 09/26/18 18:37 BP 146/57 09/26/18 18:37 Pulse Ox 99 09/26/18 18:37 Discharge - Discharge Plan Referrals: Estrella Petit NP [Primary Care Provider] -
== END 2018-09-26 19:25 | disposition home or self-care (01) ==
LOC: UCEAST 18:31
DX: T14.8XXA Other injury of unspecified body region, initial encounter (principal); W57.XXXA Bitten or stung by nonvenomous insect and other nonvenomous arthropods, initial encounter; Y92.9 Unspecified place or not applicable
CPT/HCPCS: 99212; G0463

== ENCOUNTER 2021-07-21 16:03 | Observation (INO) ==
[2021-07-21 17:01] LABS: ABS Eosinophils 0.4 10^3/ul (0-0.6); ABS Lymphocytes 1.4 10^3/ul (1.0-4.8); ABS Monocytes 0.5 10^3/ul (0-0.8); ABS Neutrophils 3.9 10^3/ul (1.5-7.7); Eosinophil % 7.1 %; Hematocrit 40 % (35-47); Hemoglobin 12.9 g/dL (12.0-16.0); Lymphocyte % 22.9 %; Mean Corpuscular HGB Conc 33 g/dL (31-36); Mean Corpuscular Hemoglobin 29 pg (27-31); Mean Corpuscular Volume 90 fL (80-97); Platelet Count 305 10^3/uL (150-450); Red Blood Count 4.38 10^6 /uL (3.70-4.87); Red Cell Distribution Width 13 % (10-15); White Blood Count 6.3 10^3/uL (3.5-10.8)
[2021-07-21] MEDS ORDERED: Diltiazem IV push/loading dose 5 MG/ML 5 ML vial (25 mg) IV SLOW PU ONE ×2 (17:38→21:50)
[2021-07-21 17:43] LABS: Albumin 4.3 g/dL (3.2-5.2); Albumin/Globulin Ratio 1.8 (1-3); Calcium 9.3 mg/dL (8.6-10.3); Globulin 2.4 g/dL (2-4); Magnesium 1.9 mg/dL (1.9-2.7); Potassium 4.3 mmol/L (3.5-5.0); Total Bilirubin 0.9 mg/dL (0.2-1.0); Total Protein 6.7 g/dL (6.4-8.9); eGFR CKD-EPI 82.2 (>60)
[2021-07-21 17:56] LABS: TSH Ultra Thyroid Stim Horm 0.82 mcIU/mL (0.34-5.60)
[2021-07-21 18:18] LABS: High Sensitivity Troponin 1 Hr 7 pg/mL (<15)
[2021-07-21] MEDS ORDERED: Metoprolol Tartrate 5 mg VIAL 5 ml VIAL (1 mg/ml) IV ONE (21:33)
[2021-07-21] MEDS ORDERED: Thiamine 100 MG/ML 2 ml VIAL (200 mg) IM ONE (21:36)
[2021-07-21] MEDS: Multivitamins/Minerals TAB PO SCH (22:35)
[2021-07-21 22:52] LABS: Free T4 1.42 ng/dL (0.61-1.12)
[2021-07-22] MEDS ORDERED: Magnesium Sulfate IV 1GM/100ML 1 GM/100 ML BAG IV ONE (03:47)
[2021-07-22] MEDS: Aspirin EC 81 mg TAB.EC (enteric coated) PO SCH (09:31)
[2021-07-22] MEDS: Multivitamins/Minerals TAB PO SCH (09:31)
[2021-07-23 08:59] VITALS: BP 101/51
[2021-07-23] MEDS: Multivitamins/Minerals TAB PO SCH (09:49)
[2021-07-23] MEDS: Aspirin EC 81 mg TAB.EC (enteric coated) PO SCH (09:49)
== END 2021-07-23 12:45 | disposition home or self-care (01) ==
LOC: EDHOLD 16:03 → ED 16:03 → SUATTDRO 20:34 → EDHOLD 23:05 → MEDTELE 07-22 01:00
PROVIDERS: ADMIT Internal Medicine; ATTEND Internal Medicine